=== PATIENT | female | born 1950 | race African-American/Black ===

== ENCOUNTER 2022-11-03 04:41 | Emergency (ER) | payer MEDICARE, MEDICAID ==
[~2022-11-03] VITALS: Ht 165.1 cm; Wt 55.0 kg
[2022-11-03 04:55] VITALS: BP 161/91
[2022-11-03] MEDS ORDERED: CLIN-194 PO (05:25)
== END 2022-11-03 05:30 | disposition home or self-care (01) ==
LOC: ER 04:41
DX: L02.91 Cutaneous abscess, unspecified (principal); R68.89 Other general symptoms and signs; J44.9 Chronic obstructive pulmonary disease, unspecified; I10 Essential (primary) hypertension
CPT/HCPCS: 99283

== ENCOUNTER 2024-07-23 04:44 | Emergency (ER) | payer MEDICARE, MEDICAID ==
[~2024-07-23] VITALS: Ht 165.1 cm; Wt 59.0 kg
[~2024-07-23 04:44] MED LIST: CLIN-194 PO
[2024-07-23 04:53] VITALS: O2SAT 100
[2024-07-23] MEDS ORDERED: CLIN-194 MT (05:25)
[2024-07-23] MEDS ORDERED: CEPH500C2 MT (05:25)
[2024-07-23] MEDS: ATENOLOL 50 MG TABLET PO ONE (05:29)
[2024-07-23 05:30] VITALS: BP 169/99; PULSE 91; RESP 17; TEMP 36.7; O2SAT 97
== END 2024-07-23 08:29 | disposition home or self-care (01) ==
LOC: ER 04:44
DX: N75.1 Abscess of Bartholin's gland (principal); I10 Essential (primary) hypertension; J44.9 Chronic obstructive pulmonary disease, unspecified; Z88.2 Allergy status to sulfonamides; Z79.899 Other long term (current) drug therapy
CPT/HCPCS: 99283

== ENCOUNTER 2024-12-01 04:52 | Emergency (ER) | payer MEDICARE, MEDICAID ==
[~2024-12-01] VITALS: Ht 165.1 cm; Wt 55.0 kg
[~2024-12-01 04:52] MED LIST changes: +CEPH500C2 MT; +CLIN-194 MT
[2024-12-01 05:09] VITALS: O2SAT 97
[2024-12-01 05:11] VITALS: BP 156/81; PULSE 89; RESP 20; TEMP 36.8; O2SAT 98
== END 2024-12-01 07:31 | disposition left against medical advice (07) ==
LOC: ER 04:52
DX: H92.03 Otalgia, bilateral (principal); Z53.21 Procedure and treatment not carried out due to patient leaving prior to being seen by health care provider